=== PATIENT | female | born 1940 | race Caucasian/White ===

== ENCOUNTER 2024-07-14 12:19 | Emergency (ER) | payer MEDICARE, OTHER ==
[~2024-07-14] VITALS: Ht 175.3 cm; Wt 63.5 kg
[2024-07-14 12:35] LABS: Source, Urine Clean Catch
[2024-07-14 12:38] LABS: Appearance, Urine Hazy (Clear); Bilirubin, Urine Neg (Neg); Blood, Urine 1+ (Neg); Color, Urine Yellow (P-Yellow); Glucose Qualitative, Urine Neg (Neg); Ketones, Urine Neg (Neg); Leukocyte Esterase, Urine 3+ (Neg); Nitrite, Urine Pos (Neg); Protein, Urine Neg (Neg); Urobilinogen, Urine NORM (Normal); pH, Urine 6.5 (5.0-8.0)
[2024-07-14 12:46] LABS: White Blood Cells, Urine 50-100 /hpf (0-5)
[2024-07-14 12:48] LABS: Bacteria Many /hpf; Red Blood Cells, Urine 0-2 /hpf (0-2); Squamous Epithelial Cells Many /hpf (Few)
[2024-07-14] MEDS ORDERED: CEPH500 PO (13:14)
== END 2024-07-14 13:39 | disposition home or self-care (01) ==
LOC: ER 12:19
PROVIDERS: Emergency Medicine
DX: N39.0 Urinary tract infection, site not specified (principal); Z88.0 Allergy status to penicillin; Z88.2 Allergy status to sulfonamides
CPT/HCPCS: 81001; 87077; 87086; 87186; 99283